=== PATIENT | female | born 1990 ===

== ENCOUNTER 2016-07-14 13:31 | Emergency (ER) | payer MEDICAID ==
[2016-03-19 22:17] VITALS: BMI 43.4
--- NOTE | 2016-07-14 18:24 | OBHP ---
Datetime: 07/14/2016 15:52 IP Adm Impression: Term, intrauterine ; No Active Labor IP Admit Plan: Observation/Evaluation Admit Comment, IP Provider: 26 y/o @ 39.1 weeks via u/s dating presented to [facility] with a CC of [place] abdominal pressure like pain. She states the pressure started 11 pm last night. Has not increase d in intensity has remained stable. She claims the pressure she is feeling makes her feel like she calderón s to pass stool but after passing stool the pressure sensation does not subside. - Denies fever/chills, headaches, changes in vision, epigastric pain, CP/SOB, N/V/D, urinary sympt oms, urinary/bowel incontinence, numbness/tingling. Denies VB/LOF/CTX and reports +FM. PNC: Cameron vizcaino PObhx: none PGynhx: none PMHx: HSV Psurghx: ankle surgery Social: denies alcohol/tobacco/drugs Meds: PNV daily, Iron supplements, Acyclovir Allergies: pineapple HIV: neg Rubella: Immune Blood type: A positve HBSAg: neg Exam: Vitals: reviewed, as above PE: as above A/P: 26 y/o @ 39.1 weeks via U/s here today for pressure like sensation at the lower abdomen. - Continuous monitoring Alfreda Coon PGY-1 OBH ADDENDUM: Pt Seen _ examined by me. Agree with above with following additions. Pt denie current or prior h/o HSV outbreak. She states she was diagnosed by lab evaluation. She states she is compliant w/ acyclovir medic. She denies current hsv outbreak, labial or vaginal or per irectal irritation. imp of compliance with acyclovir d/w pt. she understands a cd is indicated if she has lesion when in labor.. d/c home kick counts labor precautions Pelvic Type - PN: Adequate Extremities - PN: Normal Abdomen - PN: Normal Back - PN: Normal Lungs - PN: Normal Heart - PN: Normal Neurologic - PN: Normal HEENT - PN: Normal General - PN: Normal FHR - Baseline A Provider: 140 Membranes, Provider: Intact Contraction Comments Provider: NO Comments, ACOG Physical Exam: NO LABIAL, PERINEAL LESIONS EGA AdmitDate IP: 39.1 Vital Signs Provider: Reviewed; Within Normal Limits IP Chief Complaint: Maternal discomfort NICHD Variability Prov Fetus A: Moderate 6-25bpm NICHD Accel Fetus A IP Provider: 15X15 FHR Category Provider Fetus A: Category I (Annotations: Data stored by CPN on behalf of user) NICHD Decel Fetus A IP Provider: None Dilatation, Provider: 0 Effacement, Provider: 50 Station, Provider: -2 Genitourinary Exam: Normal
== END 2016-07-14 23:00 | disposition home or self-care (01) ==
LOC: H.EROB2 13:31
DX: O26.893 Other specified pregnancy related conditions, third trimester (principal); R10.30 Lower abdominal pain, unspecified; Z3A.39 39 weeks gestation of pregnancy

== ENCOUNTER 2016-07-18 03:30 | Emergency (ER) | payer MEDICAID ==
[2016-07-18 05:58] VITALS: BMI 45.3
== END 2016-07-18 06:00 | disposition home or self-care (01) ==
LOC: H.EROB2 03:30
DX: O44.03 Complete placenta previa NOS or without hemorrhage, third trimester (principal); O99.213 Obesity complicating pregnancy, third trimester; Z3A.39 39 weeks gestation of pregnancy; Z36 Encounter for antenatal screening of mother; O47.1 False labor at or after 37 completed weeks of gestation

== ENCOUNTER 2016-07-18 23:53 | Emergency (ER) | payer MEDICAID ==
--- NOTE | 2016-07-19 00:05 | OBHP ---
Datetime: 07/18/2016 05:35 Admit Comment, IP Provider: Patient aneudy irregularly Q2-3 min, no cervix modifications in 1 h our. Discharge home Case discussed with Dr Ahn. Jami Aguayo PGY1 OB Hospitalist note Agree with above note. MAHNDO FHR - Baseline A Provider: 140 Membranes, Provider: Intact Contraction Comments Provider: 12-3 min irregular NICHD Variability Prov Fetus A: Moderate 6-25bpm NICHD Accel Fetus A IP Provider: 15X15 NICHD Decel Fetus A IP Provider: None Dilatation, Provider: fingertip Effacement, Provider: 50 Station, Provider: -2 Datetime: 07/18/2016 04:34 IP Adm Impression: Term, intrauterine IP Admit Plan: Observation/Evaluation Pelvic Type - PN: Adequate Extremities - PN: Normal Back - PN: Normal Breast - PN: Not Done Lungs - PN: Normal Heart - PN: Normal Thyroid - PN: Normal Neurologic - PN: Normal HEENT - PN: Normal General - PN: Normal Comments, ACOG Physical Exam: Us Bedside: Vertex genitals: no herpes virus active lesions pelvic exam: 4: 30 am ROS: General: no weakness; no fatigue HEENT: no SZYMANSKI; no visual dist CV: no palpitations; no no CP GI: noN/V no diarhea No epigastric pain; non radiating : no F/U/D MS: No joint pain Pool Provider: Negative IP Hx Assessment: The History has been Reviewed and is Current EGA AdmitDate IP: 39.5 Vital Signs Provider: Reviewed; Within Normal Limits IP Chief Complaint: Uterine contractions FHR Category Provider Fetus A: Category I Genitourinary Exam: Normal DTRs - PN: Normal
[2016-07-19 02:29] VITALS: BMI 37.8
== END 2016-07-19 02:30 | disposition home or self-care (01) ==
LOC: H.EROB2 23:53
DX: O47.1 False labor at or after 37 completed weeks of gestation (principal); Z3A.39 39 weeks gestation of pregnancy

== ENCOUNTER 2016-07-19 20:15 | Inpatient (IN) | payer MEDICAID ==
[2016-07-20 03:30] VITALS: BMI 45.3
[2016-07-20] MEDS: Lactated Ringer's 1,000 ML IV SCH ×2 (03:30→04:31)
--- NOTE | 2016-07-20 03:31 | OBADHP ---
Datetime: 07/20/2016 03:25 Admit Comment, IP Provider: 26 yo , at 39.6 weeks GA By LMP 10/14/15 with [facility]: 07/20/16 presents t o [facility] c/o uterine ctx started 2 days ago. Patient was seen and evaluated yesterday, today midnight a nd discharged home, no in active labor.Patient comes again reporting Ctx has been stronger and more f requent since the morining 10 am and 40 min ago andreas 5 min,10/10 intensity. Patient denies LOF, VB, dysuria, fever, genital itching or genital burning sensation, headache, photophobia, N/V/D. Care in [facility]. Last visit last . Had US yesterday and patient was told everyth ing is ok. Last Us 05/17 17 EFW 4lb 10 oz, cephalic, posterior placenta. POBHx: none PGYNHx: Hx/o HSV PMHx: Obesity Allergies: NKDA, pineapple. SOB reaction. Meds: PNV, Iron, Acyclovir 1 tab qday PSurghx: left ankle fracture PShx: No ETOH,rect drugs, cig GBS: neg ABO-Rh: A+ Antibody: neg RPR: neg HIV: neg HBsAg: neg Rubella: immune GC/C: neg PPD: no TDap: no Assessment/Plan: 26 yo , at 39.5 weeks GA c/o uterine CTx. -Observation -Continous monitoring -check in 1 hour Jami Aguayo PGY1 Case Discussed with Dr Reyna -Patient will be recheck in 1 hour OB Hospitalist Addendum: Pt seen by me. Agree w/ above. 26 yo G1 at 39+6 wks c/o ctxns, denies L OF, VB, reports FM. VE 2/80-90/-2 per RN at 8:45 pm. VE 3-4/90/-1 at 11:15pm Pt became increasingly more uncomfortable, desires pain medication, epidual ordered. Pt admitted to L_D in labor. (ES) Pelvic Type - PN: Adequate Extremities - PN: Normal Abdomen - PN: Normal Back - PN: Normal Breast - PN: Normal Lungs - PN: Normal Heart - PN: Normal Thyroid - PN: Normal Neurologic - PN: Normal HEENT - PN: Normal General - PN: Normal FHR - Baseline A Provider: 140 Membranes, Provider: Intact Contraction Comments Provider: irregular Comments, ACOG Physical Exam: Us: Bedside: vertex 12:55 am 3-4 cm/90 % /-1 Vital Signs Provider: Reviewed; Within Normal Limits NICHD Variability Prov Fetus A: Moderate 6-25bpm NICHD Accel Fetus A IP Provider: 15X15 FHR Category Provider Fetus A: Category I NICHD Decel Fetus A IP Provider: None Dilatation, Provider: 3-4cm Effacement, Provider: 90 Station, Provider: -1 Genitourinary Exam: Normal DTRs - PN: Normal Datetime: 07/19/2016 21:16 Pool Provider: Negative IP Chief Complaint: Uterine contractions EGA AdmitDate IP: 39.6 IP Adm Impression: Term, intrauterine ; No Active Labor IP Admit Plan: Observation/Evaluation Datetime: 07/18/2016 04:34 IP Hx Assessment: The History has been Reviewed and is Current Datetime: 03/19/2016 22:24 IP Chief Complaint Other: back pain
[2016-07-20] MEDS ORDERED: Lactated Ringer's 1,000 ML IV SCH (04:45)
[2016-07-20 06:56] LABS: HEMATOCRIT 35.6 % (34.0-47.0); MEAN CORPUSCULAR HEMOGLOBIN 29.9 pg (27.0-31.0); MEAN CORPUSCULAR HGB CONC 32.8 g/dL (33.0-37.0); WHITE BLOOD COUNT 8.5 K/uL (4.8-10.8)
[2016-07-20 07:30] LABS: MEAN CELL VOLUME 91.2 fl (81.0-99.0)
[2016-07-20] MEDS ORDERED: Bupivacaine HCl 0.25% PF (10 ml) Inj ONE (08:19)
[2016-07-20] MEDS ORDERED: Fentanyl/Bupivacaine HCl 250 ML EPI ONE (08:19)
--- NOTE | 2016-07-20 09:45 | OBHP ---
Datetime: 07/20/2016 07:15 FHR - Baseline A Provider: 145 Amniotic Fluid Color, Provider: Clear Membranes, Provider: Ruptured Pool Provider: Positive Vital Signs Provider: Reviewed NICHD Decel Fetus A IP Provider: None Dilatation, Provider: 4 Effacement, Provider: 90 Station, Provider: -1 Datetime: 07/20/2016 03:25 Pelvic Type - PN: Adequate Extremities - PN: Normal Abdomen - PN: Normal Back - PN: Normal Breast - PN: Normal Lungs - PN: Normal Heart - PN: Normal Thyroid - PN: Normal Neurologic - PN: Normal HEENT - PN: Normal General - PN: Normal Contraction Comments Provider: irregular Comments, ACOG Physical Exam: Us: Bedside: vertex 12:55 am 3-4 cm/90 % /-1 NICHD Variability Prov Fetus A: Moderate 6-25bpm NICHD Accel Fetus A IP Provider: 15X15 FHR Category Provider Fetus A: Category I Genitourinary Exam: Normal DTRs - PN: Normal Datetime: 07/19/2016 21:16 IP Adm Impression: Term, intrauterine ; No Active Labor IP Admit Plan: Observation/Evaluation EGA AdmitDate IP: 39.6 IP Chief Complaint: Uterine contractions Datetime: 07/19/2016 00:15 Admit Comment, IP Provider: OBH ADDENDUM: pt seen _ examined by me. agree with above assessment and plan.26 yo , at 39.6 weeks GA By LM P 10/14/15 with BACILIO: 07/20/16 presents to [facility] c/o uterine ctx started 2 days ago. Last night , was seen in [facility] and discharged home. Patient c/w Ctx, worse today in the afternoon every 5 min, 10/10 intens ity. Patient denies LOF, VB, dysuria, fever, genital itching or genital burning sensation, headache, photophobia, N/V/D. Care in [facility]. Last visit last . Had US today and patient was told everything is ok. Last Us 05/17 16 EFW 4lb 10 oz, cephalic, post placenta. POBHx: none PGYNHx: Hx/o HSV PMHx: Obesity Allergies: NKDA, pineapple. SOB reaction. Meds: PNV, Iron, Acyclovir 1 tab qday PSurghx: left ankle fracture PShx: No ETOH,rect drugs, cig GBS: neg ABO-Rh: A+ Antibody: neg RPR: neg HIV: neg HBsAg: neg Rubella: immune GC/C: neg PPD: no TDap: no Assessment/Plan: 26 yo , at 39.5 weeks GA c/o uterine CTx. -Observation -Continous monitoring -check in 1 hour Jami Aguayo PGY1 Case Discussed with Dr Ortez -Patient will be recheck in 1 hour OBH ADDENDUM: pt seen _ examined by me. agree with above assessment and plan.
[2016-07-20] MEDS ORDERED: Oxytocin 30 units/LR 500ML 30 U/500 ML BAG IV SCH (11:20)
[2016-07-20] MEDS ORDERED: Oxycodone/Acetaminophen 5/325 mg Tab PO PRN ×4 (18:11→20:20)
--- NOTE | 2016-07-20 19:02 | OBDS ---
DELIVERY PERSONNEL Delivery Doctor: Sergio Pena MD Electric Frying Pan Repairer: Nayla Marie vloza Anesthesiologist: Radha Gómez MD MATERNAL INFORMATION Delivery Anesthesia: Epidural Medications in Delivery: Pitocin 30units in LR 500 at 999ml/hr Estimated Blood Loss (ml): 300 Placenta Cultured: No Maternal Complications: None Provider Comments: Delivery Note: AP dx: 40 wks; labor PP dx: same Procedure: , cord blood collected. placenta delivered spontaneously and intact Ob: ty thakur anesth: epidural dr gómez findings: viable female with compoiund presentation of rue; 3660g; 9_9 Destination: pt remained in br with LABOR SUMMARY EDC: 07/20/2016 00:00 No. Babies in Womb: 1 Attempted: No Labor Anesthesia: Epidural LABOR INFORMATION Reason for Induction: Not Applicable Onset of Labor: 07/20/2016 08:30 Complete Dilatation: 07/20/2016 15:45 Oxytocin: Augmentation Group B Beta Strep: Negative Antibiotics # of Doses: NA Antibiotics Time of Last Dose: NA Steroids Given: None Reason Steroids Not Administered: Not Applicable MEMBRANES Membranes Rupture Method: Spontaneous Rupture of Membranes: 07/20/2016 06:33 Length of Rupture (hrs): 10.37 Amniotic Fluid Color: Clear Amniotic Fluid Amount: Moderate Amniotic Fluid Odor: Normal STAGES OF LABOR Stage 1 hrs: 7 Stage 1 min: 15 Stage 2 hrs: 1 Stage 2 min: 10 Stage 3 hrs: 0 Stage 3 min: 9 Total Time in Labor hrs: 8 Total Time in Labor min: 34 VAGINAL DELIVERY Episiotomy: None Laceration Extension: N/A Laceration Type: None Initial Vag Sponge Count: 10 Final Vag Sponge Count: 10 Initial Vag Sharps Count: 0 Final Vag Sharps Count: 0 Sharps Count Correct: N/A Count Comment: laps 5 10 sponges BABY A INFORMATION Delivery Date/Time: 07/20/2016 16:55 Method of Delivery: Vaginal Born in Route : No : N/A Forceps: N/A Vacuum Extraction: N/A Shoulder Dystocia : No SHOULDER DYSTOCIA BABY A Delivery Date/Time: 07/20/2016 16:55 PRESENTATION/POSITION BABY A Presentation: Compound Cephalic Presentation: Vertex Breech Presentation: N/A PLACENTA INFORMATION BABY A Placenta Delivery Time : 07/20/2016 17:04 Placenta Method of Delivery: Spontaneous Placenta Status: Delivered SCORES BABY A Heart Rate 1 min: >100 bpm Resp Effort 1 min: Good Cry Reflex Irritability 1 min: Cough or Sneeze or Pulls Away Muscle Tone 1 min: Active Motion Color 1 min: Body [place], Extremities Blue Resuscitation Effort 1 min: Tactile Stimulation SCORE 1 MIN: 9 Heart Rate 5 min: >100 bpm Resp Effort 5 min: Good Cry Reflex Irritability 5 min: Cough or Sneeze or Pulls Away Muscle Tone 5 min: Active Motion Color 5 min: Body [place], Extremities Blue Resuscitation Effort 5 min: N/A SCORE 5 MIN: 9 INFANT INFORMATION BABY A Gestational Age at Delivery: 40.0 Gestational Status: Term Infant Outcome : Liveborn Infant Condition : Stable Sex: Female IDENTIFICATION/MEDS BABY A ID Band Number: [id number] ID Band Location: Left Leg Vitamin K Given : Not Given Erythromycin Given: Not Given WEIGHT/LENGTH BABY A Infant Birthweight (gms): 3660 Weight (lb): 8 Weight (oz): 1 CORD INFORMATION BABY A No. Cord Vessels: 3 Nuchal Cord : N/A Nuchal Cord Other: na True Knot: na Cord pH Baby Arterial: na Cord pH Baby Venous: na Cord Blood Taken: Yes Banking/Donate Info: no Suction: Mouth ASSESSMENT BABY A Complications: None Physical Findings at Delivery: Within Normal Limits Respirations: Appears Normal Sleep Lab Technologist/ALS Called : No Care By: Nayla Marie Transferred To: Remains with Mother
[2016-07-20] MEDS ORDERED: Oxytocin 30 units/LR 500ML 30 U/500 ML BAG IV ONE (19:07)
[2016-07-20 19:48] VITALS: BP 122/58; PULSE 82; RESP 18; TEMP 98.4; O2SAT 99
[2016-07-21 08:17] LABS: HEMATOCRIT 33.3 % (34.0-47.0); MEAN CELL VOLUME 92.3 fl (81.0-99.0); MEAN CORPUSCULAR HEMOGLOBIN 30.2 pg (27.0-31.0); MEAN CORPUSCULAR HGB CONC 32.7 g/dL (33.0-37.0); RED CELL DISTRIBUTION WIDTH 15.8 % (11.5-14.5); WHITE BLOOD COUNT 10.2 K/uL (4.8-10.8)
--- NOTE | 2016-07-21 09:49 | OBPPN ---
Datetime: 07/21/2016 06:16 PP Pain Prov: Within normal limits PP Nausea Prov: Denies PP Flatus Prov: Yes PP BM Prov: No PP Breasts Prov: Normal PP Heart Prov: Normal PP Lungs Prov: Normal PP Abdomen/Uterus Prov: Normal PP Lochia Prov: Normal PP Vulva/Perineum Prov: Normal PP CVA Tenderness Prov: Normal PP Extremities Prov: Normal PP C/S Incision Prov: Not Applicable PP Progress Prov: Normal PP Comments Phys Exam Prov: Uterus: fundus; firm above umbilicus minimal locha, non foul smelling PP Impression Prov: Normal progression PP Plan Prov: Continue present management PP Progress Note Prov: 26 y/o seen and examined at bedside. Patient had uneventful overnight. Patient reports mild pelvic pain controlled w/ pain meds. OOB/Ambulating w/o dizziness. Breast/rivka ttle feeding w/o difficulty. Tolerating PO diet well. Lochia is less than menses in volume. Voidin g freely w/ no blood noted. Reports flatus, but not bowel movement yet. Denies fevers, chills, n/v/ d, CP/SOB, lightheadedness and calf pain. Assessment: 26 y/o s/p on 07/20/2016 @ 16:55 tolerating pain w/ medication, toleratin g oral intake, adequate urine output, doing well on PPD1. Plan: Ibuprofen 600 mg 1 tab Q6h PO prn for mild pain. -Percocet 5/325 mg 1-2 tabs PO Q6h prn for mod/severe pain. Encourage breast feeding and ambulation. Jami Aguayo PGY1 agree with ove Vital Signs Provider PP: Reviewed; Within Normal Limits
[2016-07-21] MEDS ORDERED: Lansinoh for Breast Feeding Mothers TP PRN (16:04)
[2016-07-22] MEDS ORDERED: TDAP Vaccine 0.5 mL Syr IM ONE (09:00)
[2016-07-22] MEDS ORDERED: Bisacodyl 5mg EC Tab PO ONE (09:21)
--- NOTE | 2016-07-22 10:03 | OBDCSUM ---
Datetime: 07/22/2016 09:14 Discharged to, Provider: Home Follow up at, Provider: Your OB Disch Instr Activity: Normal activity; May be up to bathroom; May be up for meals; May Shower Disch Instr Diet: Regular Discharge Instructions, Provider: Routine instructions given Discharge Diagnosis, Provider: Term Delivered Discharge Time: 07/22/2016 12:00 Follow up in weeks, Provider: 6 weeks Disch Referrals: None Disch Activity Restrictions: Minimize stair-climbing; No sexual activity; Nothing in vagina - Interc ourse, tampons, douche Discharge Comment, Provider: PPD # 2 Patient feeling well this AM, denies pain/dizziness/weakness/nausea or vomiting. Reports flatus an d normal urine output, no bowel movement , tolerating PO diet, no difficulty ambulating. Patient is b ottle feeding, and using pump to aid in breast feeding. No concerns or complaints at this time. PE: VSS Lungs: CTABL Cardiac: S1 S2 rrr, no murmurs/rubs/gallops Abd: bowel sound present, soft, no tenderness to palpation, fundus firm below level of umbilicus Ext: no edema A: 26yr old s/p P: -Discharge to home -Follow up with your obgyn in 6 weeks -Take baby to [facility] in 2-3 days -Ibuprofen 600mg PO Q6 PRN pain -encouraged breast feeding -no sexual intercourse, nothing in the vagina Gina Zimmerman M.D. -PGY1 Contraception after Delivery: Foam/Condoms
--- NOTE | 2016-07-22 10:03 | OBPPN ---
Datetime: 07/22/2016 09:11 PP Pain Prov: Within normal limits PP Nausea Prov: Denies PP Flatus Prov: Yes PP BM Prov: No PP Heart Prov: Normal PP Lungs Prov: Normal PP Abdomen/Uterus Prov: Normal PP Lochia Prov: Normal PP CVA Tenderness Prov: Normal PP Extremities Prov: Normal PP C/S Incision Prov: Not Applicable PP Progress Prov: Normal PP Impression Prov: Normal progression PP Plan Prov: Continue present management PP Progress Note Prov: PPD # 2 Patient feeling well this AM, denies pain/dizziness/weakness/nausea or vomiting. Reports flatus an d normal urine output, no bowel movement , tolerating PO diet, no difficulty ambulating. Patient is b ottle feeding, and using pump to aid in breast feeding. No concerns or complaints at this time. PE: VSS Lungs: CTABL Cardiac: S1 S2 rrr, no murmurs/rubs/gallops Abd: bowel sound present, soft, no tenderness to palpation, fundus firm below level of umbilicus Ext: no edema A: 26yr old s/p P: -Continue present management -encouraged ambulation -pain management -encouraged breast feeding -Tdap ordered for this AM Gina Zimmerman M.D. -PGY1 Addendum by Dr. Younger: Patient evalauted independently and I agree with the above. Patient to be d ischarged today, discharge instructions reviewed IP PP Procedures: None
== END 2016-07-22 13:08 | disposition home or self-care (01) | DRG 373 ==
LOC: H.EROB2 20:15 → H.L&D 07-20 03:30 → H.OB/GYN 07-20 20:10
PROVIDERS: ADMIT Obstetrics & Gynecology; ATTEND Obstetrics & Gynecology
PROC: 10E0XZZ Delivery of Products of Conception, External Approach (ICD-10-PCS; principal; 2016-07-20)
PROC: 4A1HXCZ Monitoring of Products of Conception, Cardiac Rate, External Approach (ICD-10-PCS; 2016-07-20)
DX: O99.213 Obesity complicating pregnancy, third trimester (principal); E66.9 Obesity, unspecified; Z37.0 Single live birth; Z3A.39 39 weeks gestation of pregnancy

== ENCOUNTER 2016-10-03 09:50 | Emergency (ER) | payer MEDICAID ==
[2016-10-03 09:50] VITALS: BMI 45.3
[2016-10-03 10:21] VITALS: BP 120/72; PULSE 75; RESP 19; TEMP 97; O2SAT 100
--- NOTE | 2016-10-03 10:23 | ED PDOC ---
HPI: Female Pain Time Seen by Provider: 10/03/16 10:15 Chief Complaint (Nursing): Female Genitourinary Chief Complaint (Provider): pelvic pain History Per: Patient Additional Complaint(s): 26-year-old female presents to emergency department with generalized pelvic pain 1 week. Patient is 2 months and states that she had intercourse for the first time last week with her partner and has had pain since then. She denies abnormal bleeding or discharge, no fever or chills, no nausea, vomiting, diarrhea or constipation. Ibuprofen has helped the pain. Patient is currently breast-feeding. She is currently sexually active with one partner and denies any concern for STD. Past Medical History Reviewed: Historical Data, Nursing Documentation, Vital Signs - Medical History PMH: Depression - Surgical History Other surgeries: Left ankle surgery x 2 - Family History Family History: States: Diabetes (mom) - Living Arrangements Living Arrangements: Alone - Social History Current smoker - smoking cessation education provided: No Alcohol: None Drugs: Denies - Home Medications Home Medications: Ambulatory Orders Medication Instructions Recorded Comb No.42/Folic Acid 1 tab PO DAILY #60 tab 11/25/15 [Prena1 Chew Tablet] Ibuprofen [Motrin Tab] 600 mg PO Q6 PRN #20 tab 07/22/16 - Allergies Allergies/Adverse Reactions: Allergies Allergy/AdvReac Type Severity Reaction Status Date / Time pineapple Allergy ITCHING Verified 01/02/16 11:33 Review of Systems ROS Statement: Except As Marked, All Systems Reviewed And Found Negative Constitutional: Negative for: Fever, Chills Respiratory: Negative for: Cough Gastrointestinal: Negative for: Nausea, Vomiting Genitourinary Female: Positive for: Pelvic Pain. Negative for: Dysuria, Frequency, Incontinence, Hematuria, Vaginal Discharge, Vaginal Bleeding, Rash Neurological: Negative for: Headache, Dizziness Physical Exam - Reviewed Nursing Documentation Reviewed: Yes Vital Signs Reviewed: Yes - Physical Exam Appears: Positive for: Well Skin: Negative for: Rash Eye Exam: Positive for: Normal appearance, EOMI, PERRL Cardiovascular/Chest: Positive for: Regular Rate, Rhythm Respiratory: Positive for: Normal Breath Sounds. Negative for: Respiratory Distress Gastrointestinal/Abdominal: Positive for: Soft. Negative for: Tenderness, Distended, Guarding, Rebound Pelvic Exam: Positive for: External Exam Normal, Speculum Exam Normal, Tender Uterus. Negative for: Active Bleeding, Cervicitis, Discharge, Lesions, Tender W /Cervical Motion, Tender Adnexa, Ulcers Back: Negative for: L CVA Tenderness, R CVA Tenderness Extremity: Positive for: Normal ROM Neurologic/Psych: Positive for: Alert, Oriented - Laboratory Results Urine POC: Negative Urine dip results: Negative for: Leukocyte Esterase, Blood, Nitrate, Ketones, Glucose, Bilirubin, Protein - ECG O2 Sat by Pulse Oximetry: 100 Pulse Ox Interpretation: Normal - Other Rad Transvaginal US X-Ray: Read By Radiologist X-Ray Interpretation: see below Medical Decision Making Medical Decision Makin26 year old with pelvic pain Plan: Urine test Urine dip Pelvic exam Transvaginal US Genital culture CHL/GC culture Patient declined pain meds. US: FINDINGS: UTERUS: Measures approximately 8.8 x 5.6 x 4.4 cm. Uterus is anteverted exhibiting normal size and echotexture. ENDOMETRIUM: Measures 1.26 cm in diameter. Unremarkable. CERVIX: No cervical abnormality identified. RIGHT OVARY: Measures approximately 4.3 x 3.9 x 2.9 cm. There is a complex appearing cyst measuring approximately 2.9 x 2.8 x 2.3 cm. Dg Right ovary exhibits normal arterial flow. LEFT OVARY: Measures approximately 2.8 x 2.6 x 2.1 cm and contains multiple follicular cysts. Left ovary exhibits normal arterial flow. FREE FLUID: There is small amount of free fluid seen in the cul de sac. OTHER FINDINGS: None. IMPRESSION: Co mplex appearing right adnexal cyst as above. Follow-up ultrasound during the next menstrual period shortly following cessation of menses recommended to assess for resolution. Small amount of free fluid is present within the cul de sac. Patient is aware of all diagnostic testing results, questions answered. She was advised to continue with ibuprofen for pain and was instructed to follow-up with her portrait studio photographer. Disposition - Clinical Impression Clinical Impression: Pelvic pain, Ovarian cyst - Patient ED Disposition Is Patient to be Admitted: No Counseled Patient/Family Regarding: Studies Performed, Diagnosis, Need For Followup - Disposition [facility] Disposition: Routine/Home Disposition Time: 11:44 Condition: STABLE Additional Instructions: Continue with ibuprofen for pain as needed. Follow up with her portrait studio photographer in 2 -3 days. Instructions: Ovarian Cyst (ED), Pelvic Pain in Women (ED) Forms: [employer] ([place]) Results - Lab Results Lab Results: 07/26/17 10:40 Urine Color Yellow Urine Clarity Slighty-cloudy Urine pH 6.0 Ur Specific Allison 1.020 Urine Protein Negative Urine Glucose (UA) Neg Urine Ketones Negative Urine Blood Negative Urine Nitrate Negative Urine Bilirubin Negative Urine Urobilinogen 0.2-1.0 Ur Leukocyte Esterase Neg Urine RBC (Auto) 3 Urine Microscopic WBC 1 Ur Squamous Epith Cells 4 Urine Bacteria Rare
[2016-10-03 10:55] LABS: SQUAMOUS EPITHIAL 4 /hpf (0-5); URINE BACTERIA RARE (<OCC); URINE BILIRUBIN NEGATIVE (NEGATIVE); URINE BLOOD NEGATIVE (NEGATIVE); URINE CLARITY SLIGHTY-CLOUDY (Clear); URINE COLOR YELLOW (YELLOW); URINE GLUCOSE (UA) NEG (Normal); URINE LEUKOCYTE ESTERASE NEG Leu/uL (Negative); URINE NITRATE NEGATIVE (NEGATIVE); URINE PROTEIN NEGATIVE (NEGATIVE); URINE UROBILINOGEN 0.2-1.0 mg/dL (0.2-1.0)
--- NOTE | 2016-10-03 11:38 | US ---
HISTORY: pelvic pain COMPARISON: None available. TECHNIQUE: Transvaginal sonographic evaluation of the pelvis performed. FINDINGS: UTERUS: Measures approximately 8.8 x 5.6 x 4.4 cm. Uterus is anteverted exhibiting normal size and echotexture. ENDOMETRIUM: Measures 1.26 cm in diameter. Unremarkable. CERVIX: No cervical abnormality identified. RIGHT OVARY: Measures approximately 4.3 x 3.9 x 2.9 cm. There is a complex appearing cyst measuring approximately 2.9 x 2.8 x 2.3 cm. Dg Right ovary exhibits normal arterial flow. LEFT OVARY: Measures approximately 2.8 x 2.6 x 2.1 cm and contains multiple follicular cysts. Left ovary exhibits normal arterial flow. FREE FLUID: There is small amount of free fluid seen in the cul de sac. . OTHER FINDINGS: None. IMPRESSION: Complex appearing right adnexal cyst as above. Follow-up ultrasound during the next menstrual period shortly following cessation of menses recommended to assess for resolution. . Small amount of free fluid is present within the cul de sac. .
== END 2016-10-03 11:56 | disposition home or self-care (01) ==
LOC: H.ER 09:50
DX: N83.209 Unspecified ovarian cyst, unspecified side (principal); R10.2 Pelvic and perineal pain

== ENCOUNTER 2017-05-30 07:29 | Emergency (ER) | payer MEDICAID ==
[2017-05-30 07:31] VITALS: BMI 47.2
[2017-05-30 07:33] VITALS: O2SAT 100
[2017-05-30] MEDS ORDERED: Sodium Chloride 0.9% 1,000 ML IV STA (07:54)
--- NOTE | 2017-05-30 08:00 | ED PDOC ---
HPI:Nausea, Vomiting, Diarrhea Time Seen by Provider: 05/30/17 07:31 Chief Complaint (Nursing): Flu-like Symptoms Chief Complaint (Provider): Nausea, vomit and diarrhea History Per: Patient History/Exam Limitations: no limitations Onset/Duration Of Symptoms: Days (x2) Current Symptoms Are (Timing): Still Present Associated Symptoms: Nausea, Diarrhea, Other (cough and sneezing.). denies: Fever, Chills Additional Complaint(s): Dana Stewart is a 27 year old female, with no significant past medical history, who presents to the emergency department complaining of nausea, vomit and diarrhea preceded by cough and sneezing onset for x2 days. Patient had a outpatient flu test done which was negative. She denies any fever, chills or other medical complaints. PMD: None provided. Past Medical History Reviewed: Historical Data, Nursing Documentation, Vital Signs Vital Signs: Last Vital Signs Temp 97.9 F 05/30/17 07:31 Pulse 95 H 05/30/17 07:31 Resp 20 05/30/17 07:31 BP 115/74 05/30/17 07:31 Pulse Ox 100 05/30/17 07:31 - Medical History PMH: Depression, Pneumonia Denies: Chronic Kidney Disease, Seizures, Sexually Transmitted Disease - Surgical History Surgical History: No Surg Hx - Family History Family History: States: Diabetes (mom) - Social History Current smoker - smoking cessation education provided: No Alcohol: Occasional Drugs: Denies - Immunization History Hx Tetanus Toxoid Vaccination: No Hx Influenza Vaccination: No Hx Pneumococcal Vaccination: No - Home Medications Home Medications: Ambulatory Orders Medication Instructions Recorded Comb No.42/Folic Acid 1 tab PO DAILY #60 tab 11/25/15 [Prena1 Chew Tablet] Ibuprofen [Motrin Tab] 600 mg PO Q6 PRN #20 tab 07/22/16 Loperamide [Loperamide HCl] 2 mg PO Q8 #10 cap 05/30/17 Ondansetron [Zofran] 4 mg PO Q8H #10 tab 05/30/17 - Allergies Allergies/Adverse Reactions: Allergies Allergy/AdvReac Type Severity Reaction Status Date / Time pineapple Allergy ITCHING Verified 01/02/16 11:33 Review of Systems ROS Statement: Except As Marked, All Systems Reviewed And Found Negative Constitutional: Negative for: Fever, Chills Respiratory: Positive for: Cough, Other (sneezing) Gastrointestinal: Positive for: Nausea, Vomiting, Diarrhea Physical Exam - Reviewed Nursing Documentation Reviewed: Yes Vital Signs Reviewed: Yes - Physical Exam Appears: Positive for: Well, Non-toxic, No Acute Distress Head Exam: Positive for: ATRAUMATIC, NORMAL INSPECTION, NORMOCEPHALIC Skin: Positive for: Normal Color, Warm, Dry Eye Exam: Positive for: Normal appearance, EOMI, PERRL ENT: Positive for: Other (Mucous membranes dry) Neck: Positive for: Painless ROM Cardiovascular/Chest: Positive for: Regular Rate, Rhythm. Negative for: Murmur Respiratory: Positive for: Normal Breath Sounds. Negative for: Respiratory Distress Gastrointestinal/Abdominal: Positive for: Normal Exam, Soft. Negative for: Tenderness Extremity: Positive for: Normal ROM (full on all extremities). Negative for: Tenderness, Deformity, Swelling Neurologic/Psych: Positive for: Alert, Oriented - Laboratory Results Result Diagrams: 05/30/17 08:05 05/30/17 08:05 - ECG O2 Sat by Pulse Oximetry: 100 (RA) Pulse Ox Interpretation: Normal Medical Decision Making Medical Decision Making: Initial Plan: --CMP --Urine dipstick --Urine --CBC w/ differential --Sodium Chloride 1,000 ml IV 200 mls/hr --Zofran Inj 4 mg IVP --Reevaluation Scribe Attestation: Documented by Samir White, acting as a scribe for Andrea Horvath MD Provider Scribe Attestation: All medical record entries made by the Scribe were at my direction and personally dictated by me. I have reviewed the chart and agree that the record accurately reflects my personal performance of the history, physical exam, medical decision making, and the department course for this patient. I have also personally directed, reviewed, and agree with the discharge instructions and disposition. Disposition - Clinical Impression Clinical Impression: Gastroenteritis - Patient ED Disposition Is Patient to be Admitted: No Counseled Patient/Family Regarding: Studies Performed, Diagnosis, Need For Followup, Rx Given - Disposition Referrals: [facility] [Outside] Disposition: Routine/Home Disposition Time: 08:45 Condition: FAIR Prescriptions: Loperamide [Loperamide HCl] 2 mg PO Q8 #10 cap Ondansetron [Zofran] 4 mg PO Q8H #10 tab Instructions: Gastroenteritis (ED) Forms: [employer] (Turkish)
[2017-05-30 08:25] LABS: BASO % 0.1 % (0.0-2.0); EOS % 0.5 % (0.0-4.0); HEMOGLOBIN 13.6 g/dL (12.0-16.0); LYMPH # 1.1 K/uL (1.0-4.3); LYMPH % 13.2 % (20.0-40.0); MEAN CELL VOLUME 86.9 fl (81.0-99.0); MEAN CORPUSCULAR HGB CONC 34.5 g/dL (33.0-37.0); MEAN PLATELET VOLUME 7.6 fl (7.2-11.7); MONO # 0.4 K/uL (0.0-0.8); MONO % 5.4 % (0.0-10.0); NEUT # 6.5 K/uL (1.8-7.0); NEUT % 80.8 % (50.0-75.0); RBC 4.53 Mil/uL (3.80-5.20); RED CELL DISTRIBUTION WIDTH 13.4 % (11.5-14.5)
[2017-05-30 08:42] LABS: ALB/GLOB RATIO 1.2 (1.0-2.1); ALBUMIN 4.3 g/dL (3.5-5.0); GFR AFRICAN-AMERICAN > 60; GFR NON-AFRICAN AMERICAN > 60
[2017-05-30 08:45] LABS: ALT/SGPT 29 U/L (9-52); AST/SGOT 29 U/L (14-36); BLOOD UREA NITROGEN 12 mg/dl (7-17)
[2017-05-30 09:09] VITALS: BP 122/72; PULSE 75; RESP 18; TEMP 98
== END 2017-05-30 08:53 | disposition home or self-care (01) ==
LOC: H.ER 07:29
DX: K52.9 Noninfective gastroenteritis and colitis, unspecified (principal); F32.9 Major depressive disorder, single episode, unspecified
CPT/HCPCS: 80053; 81025; 85025; 96360; 99284; J7040

== ENCOUNTER 2017-10-10 09:05 | Emergency (ER) | payer MEDICAID ==
[2017-10-10 09:05] VITALS: BMI 47.2
--- NOTE | 2017-10-10 10:21 | ED PDOC ---
HPI: Headache Time Seen by Provider: 10/10/17 09:10 Chief Complaint (Nursing): Headache Chief Complaint (Provider): Headache History Per: Patient History/Exam Limitations: no limitations Onset/Duration Of Symptoms: Intermittent Episodes, Other (2 months) Associated Symptoms: Nausea. denies: Blurred Vision, Vomiting Additional Complaint(s): 27 years old female with history of migraines and PCOS presents to the ED for evaluation of intermittent episodes of right sided headache associated with nausea onset 2 weeks. Patient reports taking Tylenol 4 days ago but developed shaking and sweating due to it. She states pain lasts half an hour, goes and then comes back. Patient states pain worsens with hot weather. She denies any vomiting or vision changes. PMD: non provided Past Medical History Reviewed: Historical Data, Nursing Documentation, Vital Signs Vital Signs: Last Vital Signs Temp 97.6 F 10/10/17 09:09 Pulse 75 10/10/17 09:09 Resp 18 10/10/17 09:09 BP 102/61 10/10/17 09:09 Pulse Ox 99 10/10/17 09:09 - Medical History PMH: Depression, Migraine, Pneumonia Denies: Chronic Kidney Disease, Seizures, Sexually Transmitted Disease - Surgical History Other surgeries: 2 ankle surgeries - Family History Family History: States: Diabetes (mom) - Social History Current smoker - smoking cessation education provided: No Alcohol: None Drugs: Denies - Immunization History Hx Tetanus Toxoid Vaccination: No Hx Influenza Vaccination: No Hx Pneumococcal Vaccination: No - Home Medications Home Medications: Ambulatory Orders Medication Instructions Recorded Comb No.42/Folic Acid 1 tab PO DAILY #60 tab 11/25/15 [Prena1 Chew Tablet] Ibuprofen [Motrin Tab] 600 mg PO Q6 PRN #20 tab 07/22/16 Loperamide [Loperamide HCl] 2 mg PO Q8 #10 cap 05/30/17 Ondansetron [Zofran] 4 mg PO Q8H #10 tab 05/30/17 Ibuprofen [Motrin] 600 mg PO Q6H PRN #20 tab 10/10/17 - Allergies Allergies/Adverse Reactions: Allergies Allergy/AdvReac Type Severity Reaction Status Date / Time pineapple Allergy ITCHING Verified 10/10/17 09:16 Review of Systems ROS Statement: Except As Marked, All Systems Reviewed And Found Negative Eyes: Negative for: Vision Change Gastrointestinal: Positive for: Nausea. Negative for: Vomiting Neurological: Positive for: Headache (Right sided) Physical Exam - Reviewed Nursing Documentation Reviewed: Yes Vital Signs Reviewed: Yes - Physical Exam Appears: Positive for: Non-toxic, No Acute Distress Skin: Positive for: Normal Color, Warm, Dry Eye Exam: Positive for: Normal appearance ENT: Positive for: Normal ENT Inspection Neck: Positive for: Normal Cardiovascular/Chest: Positive for: Regular Rate, Rhythm. Negative for: Murmur Respiratory: Positive for: Normal Breath Sounds. Negative for: Respiratory Distress Gastrointestinal/Abdominal: Positive for: Normal Exam, Soft. Negative for: Tenderness Back: Positive for: Normal Inspection Extremity: Positive for: Normal ROM. Negative for: Tenderness Neurologic/Psych: Positive for: Alert, bonbon cream warmer II-XII, Oriented (x3), Gait (stable) . Negative for: Motor/Sensory Deficits, Aphasia, Facial Droop - Laboratory Results Result Diagrams: 10/10/17 10:42 10/10/17 10:42 - ECG O2 Sat by Pulse Oximetry: 99 (RA) Pulse Ox Interpretation: Normal Medical Decision Making Medical Decision Making: Time: 1005 Initial Plan: migraine, history of migraines rule out electrolyte abnormality --CMP --CBC --NaCl 1,000 ml IV --Reglan 10 mg IVP 1230 Labs show no significant abnormality. Patient reports improvement of symptoms but not to complete resolution, so ordered Toradol. She ate a food tray while in the ER. pt awake and alert, airway intact, pain improved and requesting to go home. instructed her to follow up with her doctor and return to the ED with any worsening or concerning symptoms. ----- Scribe Attestation: Documented by Della De Leon, acting as a scribe for Ernesto Venegas MD. Provider Scribe Attestation: All medical record entries made by the Scribe were at my direction and personally dictated by me. I have reviewed the chart and agree that the record accurately reflects my personal performance of the history, physical exam, medical decision making, and the department course for this patient. I have also personally directed, reviewed, and agree with the discharge instructions and disposition. Disposition - Clinical Impression Clinical Impression: Migraine - Patient ED Disposition Is Patient to be Admitted: No Counseled Patient/Family Regarding: Studies Performed, Diagnosis, Need For Followup - Disposition Referrals: [facility] [Outside] [facility] [Outside] Disposition: Routine/Home Disposition Time: 12:25 Condition: IMPROVED Additional Instructions: follow up with the clinic in 1-2 days return to the ED with any worsening or concerning symptoms Prescriptions: Ibuprofen [Motrin] 600 mg PO Q6H PRN #20 tab PRN Reason: Pain, Moderate (4-7) Instructions: Migraine Headache (DC) Forms: [employer] (Irish)
[2017-10-10] MEDS: Sodium Chloride 0.9% 1,000 ML IV STA (10:26)
[2017-10-10 10:45] LABS: BASO % 0.7 % (0.0-2.0); EOS # 0.1 K/uL (0.0-0.7); EOS % 1.3 % (0.0-4.0); HEMOGLOBIN 12.9 g/dL (12.0-16.0); LYMPH # 2.2 K/uL (1.0-4.3); LYMPH % 46.2 % (20.0-40.0); MEAN CELL VOLUME 86.4 fl (81.0-99.0); MEAN CORPUSCULAR HEMOGLOBIN 30.1 pg (27.0-31.0); MEAN CORPUSCULAR HGB CONC 34.8 g/dL (33.0-37.0); MEAN PLATELET VOLUME 7.2 fl (7.2-11.7); MONO # 0.4 K/uL (0.0-0.8); MONO % 8.2 % (0.0-10.0); NEUT % 43.6 % (50.0-75.0); NRBC % 0.1 % (0.0-0.0); RBC 4.3 Mil/uL (3.80-5.20); RED CELL DISTRIBUTION WIDTH 13.4 % (11.5-14.5); WHITE BLOOD COUNT 4.7 K/uL (4.8-10.8)
[2017-10-10 10:56] LABS: ALB/GLOB RATIO 1.3 (1.0-2.1); ALBUMIN 4.2 g/dL (3.5-5.0); ALT/SGPT 23 U/L (9-52); AST/SGOT 17 U/L (14-36); BLOOD UREA NITROGEN 8 mg/dl (7-17); CALCIUM 8.8 mg/dL (8.4-10.2); GFR AFRICAN-AMERICAN > 60; GFR NON-AFRICAN AMERICAN > 60
[2017-10-10 12:54] VITALS: BP 128/78; PULSE 78; RESP 19; TEMP 97
[2017-10-10 15:24] VITALS: O2SAT 99
== END 2017-10-10 12:56 | disposition home or self-care (01) ==
LOC: H.ER 09:05
DX: G43.909 Migraine, unspecified, not intractable, without status migrainosus (principal)
CPT/HCPCS: 80053; 81025; 85025; 96361; 96374; 96375; 99285; J1885; J2765; J7030

== ENCOUNTER 2018-01-11 16:09 | Emergency (ER) | payer MEDICAID ==
[2018-01-11 16:09] VITALS: BMI 47.2
--- NOTE | 2018-01-11 17:17 | ED PDOC ---
Lower Extremity Pain/Injury Time Seen by Provider: 01/11/18 16:33 Chief Complaint (Nursing): Lower Extremity Problem/Injury Chief Complaint (Provider): Left ankle pain, injury History Per: Patient History/Exam Limitations: no limitations Onset/Duration Of Symptoms: Hrs Current Symptoms Are (Timing): Still Present Additional Complaint(s): 27 yo female with previous tendon repair on the left ankle, presents with left ankle pain. PT states she tripped going down the steps and twisted her ankle. Pt reports lateral ankle pain. Pt also reports chronic tingling/numbness on the lateral ankle since previous tendon repair, over scar. Pt states she was given referral to f/u with neurologist but did not make appointment due to her work schedule. 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 Camp Past Medical History Vital Signs: Last Vital Signs Temp 98.2 F 01/11/18 16:39 Pulse 86 01/11/18 16:39 Resp 16 01/11/18 16:39 BP 112/68 01/11/18 16:39 Pulse Ox 100 01/11/18 16:39 - Medical History PMH: Depression, Migraine, Pneumonia Denies: Chronic Kidney Disease, Seizures, Sexually Transmitted Disease - Family History Family History: States: Diabetes (mom) - Immunization History Hx Tetanus Toxoid Vaccination: No Hx Influenza Vaccination: No Hx Pneumococcal Vaccination: No - Home Medications Home Medications: Ambulatory Orders Medication Instructions Recorded Comb No.42/Folic Acid 1 tab PO DAILY #60 tab 11/25/15 [Prena1 Chew Tablet] Ibuprofen [Motrin Tab] 600 mg PO Q6 PRN #20 tab 07/22/16 Loperamide [Loperamide HCl] 2 mg PO Q8 #10 cap 05/30/17 Ondansetron [Zofran] 4 mg PO Q8H #10 tab 05/30/17 Ibuprofen [Motrin] 600 mg PO Q6H PRN #20 tab 10/10/17 Ibuprofen [Motrin Tab] 800 mg PO Q6H PRN #20 tab 01/11/18 - Allergies Allergies/Adverse Reactions: Allergies Allergy/AdvReac Type Severity Reaction Status Date / Time pineapple Allergy ITCHING Verified 10/10/17 09:16 Review of Systems ROS Statement: Except As Marked, All Systems Reviewed And Found Negative Constitutional: Negative for: Fever, Chills Musculoskeletal: Positive for: Other (LEft ankle pain) Physical Exam - Reviewed Nursing Documentation Reviewed: Yes Vital Signs Reviewed: Yes - Physical Exam Appears: Positive for: Well, Non-toxic, No Acute Distress Head Exam: Positive for: ATRAUMATIC, NORMAL INSPECTION, NORMOCEPHALIC Skin: Positive for: Warm. Negative for: Normal Color (healed scar on the lateral left ankle ) Eye Exam: Positive for: Normal appearance ENT: Positive for: Normal ENT Inspection Neck: Positive for: Normal Cardiovascular/Chest: Negative for: Bradycardia, Tachycardia Respiratory: Negative for: Accessory Muscle Use, Respiratory Distress Pulses-Dorsalis Pedis (L): 2+ Pulses-Post. Tibialis (L): 2+ Back: Positive for: Normal Inspection Extremity: Positive for: Normal ROM Neurologic/Psych: Positive for: Alert, Oriented - ECG O2 Sat by Pulse Oximetry: 100 (RA) Pulse Ox Interpretation: Normal Medical Decision Making Medical Decision Making: Time: 1703 Initial Plan: --X-ray ankle ------- Scribe Attestation: Documented by Chris Ralph, acting as a scribe for Grace Batista PA-C Provider Scribe Attestation: All medical record entries made by the Scribe were at my direction and personally dictated by me. I have reviewed the chart and agree that the record accurately reflects my personal performance of the history, physical exam, medical decision making, and the department course for this patient. I have also personally directed, reviewed, and agree with the discharge instructions and di sposition. Disposition - Clinical Impression Clinical Impression: Ankle injury - Patient ED Disposition Is Patient to be Admitted: No - Disposition Disposition: Routine/Home Disposition Time: 19:09 Condition: GOOD Prescriptions: Ibuprofen [Motrin Tab] 800 mg PO Q6H PRN #20 tab PRN Reason: Pain Instructions: Ankle Sprain Forms: [employer] ([place] Citizen)
[2018-01-11 19:16] VITALS: BP 121/82; PULSE 73; RESP 17; TEMP 98
[2018-01-11 19:18] VITALS: O2SAT 100
--- NOTE | 2018-01-11 22:00 | RAD ---
Date of service: 01/11/2018 PROCEDURE: Left Ankle Radiographs. HISTORY: pain, twisted ankle, previous tendon repair COMPARISON: None available. FINDINGS: BONES: Normal. No fracture. JOINTS: Normal. No osteoarthritis. Ankle mortise maintained. Talar dome intact SOFT TISSUES: Normal. OTHER FINDINGS: None. IMPRESSION: Normal left ankle radiographs.
--- NOTE | 2018-01-12 14:38 | CP.PCM.CON ---
History of Present Illness - History of Present Illness History of Present Illness: Podiatry consult note for Dr. Camp, 27 y/o female with no significant PMHx and with previous tendon repair on the left ankle, presents with left ankle pain. Pt states she tripped going up the steps and twisted her ankle. Pt reports lateral ankle pain. Pt also reports chronic tingling/numbness on the lateral ankle since previous tendon repair, over scar. Pt states she was given referral to f/u with neurologist but did not make appointment due to her work schedule. Patient denies any other complaints at this time. Patient denies any fever, nausea, vomiting, shortness of breath, or chest pain. 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 Camp PMHx: Migraine, Pneumonia PSHx: Lateral Ankle Stabilizatio x 2 (2012, 2014) Mediations: denied by patient Allergies: Pineapple Review of Systems - Review of Systems All systems: reviewed and no additional remarkable complaints except Review of Systems: As per HPI Past Patient History - Infectious Disease Hx of Infectious Diseases: None - Tetanus Immunizations Tetanus Immunization: Unknown - Past Medical History & Family History Past Medical History?: No - Past Social History Smoking Status: Former Smoker - PULMONARY Hx Pneumonia: Yes - NEUROLOGICAL Hx Migraine: Yes Hx Seizures: No - HEENT Hx HEENT Problems: No - RENAL Hx Chronic Kidney Disease: No - ENDOCRINE/METABOLIC Hx Endocrine Disorders: No - INTEGUMENTARY Hx Dermatological Problems: No - MUSCULOSKELETAL/RHEUMATOLOGICAL Hx Musculoskeletal Disorders: No - GASTROINTESTINAL Hx Gastrointestinal Disorders: No - GENITOURINARY/GYNECOLOGICAL Hx Sexually Transmitted Disorders: No - PSYCHIATRIC Hx Depression: Yes - SURGICAL HISTORY Hx Surgeries: Yes Hx Musculoskeletal Surgery: Yes (LEFT ANKLE JAN 2014) - ANESTHESIA Hx Anesthesia: Yes Hx Anesthesia Reactions: No Meds Home Medications: Home Medication List Medication Instructions Recorded Confirmed Type Ibuprofen [Motrin Tab] 800 mg PO Q6H PRN #20 tab 01/11/18 Rx Allergies/Adverse Reactions: Allergies Allergy/AdvReac Type Severity Reaction Status Date / Time pineapple Allergy ITCHING Verified 10/10/17 09:16 Physical Exam - Constitutional Appears: Well, Non-toxic, No Acute Distress - Head Exam Head Exam: ATRAUMATIC, NORMOCEPHALIC - Extremities Exam Additional comments: VASC: DP and PT 2/4 bilaterally, CFT less than 3 seconds X 10, TG within normal limits, minimal non-pitting edema noted to the left lateral ankle and lateral aspect of the left foot NEURO: grossly intact DERM: minimal ecchymosis to the lateral aspect of the foot distal to the lateral ankle along the peroneal tendon, no open lesions, no clinical signs of infection ORTHO: pain on palpation along the course of the peroneal tendons, pain with inversion and plantarflexion, pain with ankle range of motion, minimal diffuse pain at the medial malleolus, MSK 5/5 - Neurological Exam Neurological exam: Alert, Oriented x3 Results - Vital Signs Recent Vital Signs: Last Vital Signs Temp 98.0 F 01/11/18 19:15 Pulse 73 01/11/18 19:15 Resp 17 01/11/18 19:15 BP 121/82 01/11/18 19:15 Pulse Ox 100 01/11/18 20:11 Assessment & Plan - Assessment and Plan (Free Text) Assessment: 27 y/o female with no significant PMHx and with previous tendon repair on the left ankle, presents with left ankle pain. Pt states she tripped going up the steps and twisted her ankle. Plan: Patient seen and evaluated in ED for Dr. Camp Plan discussed with attending Chart, labs and x-rays reviewed Left Foot X-ray: no acute fracture or dislocation noted Patient placed in a posterior splint, and instructed on crutch training Patient to remain NWB to the LLE at this time Patient to follow up in Dr. Camp [facility] Patient demonstrated verbal understanding Patient advised to return to ED if any signs of infection present Thank you for the podiatry consult - Date & Time Date: 01/12/18 Time: 14:46
== END 2018-01-11 19:16 | disposition home or self-care (01) ==
LOC: H.ER 16:09
DX: S99.912A Unspecified injury of left ankle, initial encounter (principal); W10.9XXA Fall (on) (from) unspecified stairs and steps, initial encounter; Z87.891 Personal history of nicotine dependence; Z86.59 Personal history of other mental and behavioral disorders

== ENCOUNTER 2018-03-03 20:57 | Emergency (ER) | payer MEDICAID ==
[2018-03-03 20:57] VITALS: BMI 47.2
[2018-03-03 21:09] VITALS: BP 117/60; PULSE 95; RESP 20; TEMP 98.4; O2SAT 100
[2018-03-03] MEDS ORDERED: Sodium Chloride 0.9% 500 ML IV STA (21:46)
--- NOTE | 2018-03-03 21:51 | ED PDOC ---
HPI: Abdomen Time Seen by Provider: 03/03/18 21:18 Chief Complaint (Nursing): Abdominal Pain Chief Complaint (Provider): N/V, diarrhea History Per: Patient Associated Symptoms: Chills, Nausea, Vomiting, Diarrhea, Chest Pain. denies: Fever Additional Complaint(s): 28 y/o obese Female with no significant PMH who presents with N/V and diarrhea since today. Pt states that she had a meat empanada earlier today and about 1 - 2 hrs later developed N/V and diarrhea. Others had similar empanadas and are not sick. Since 3pm, she has had persistent vomiting, last of which was just prior to arrival. She has epigastric pain as well as mild dizziness. She developed chest pain with deep inspiration this afternoon but denies radiation of pain to arm or jaw or SOB. Past Medical History Vital Signs: Last Vital Signs Temp 98.4 F 03/03/18 21:07 Pulse 95 H 03/03/18 21:07 Resp 20 03/03/18 21:07 BP 117/60 03/03/18 21:07 Pulse Ox 100 03/03/18 21:07 - Medical History PMH: Depression, Migraine, Pneumonia Denies: Chronic Kidney Disease, Seizures, Sexually Transmitted Disease - Family History Family History: States: Diabetes (mom) - Immunization History Hx Tetanus Toxoid Vaccination: No Hx Influenza Vaccination: No Hx Pneumococcal Vaccination: No - Home Medications Home Medications: Ambulatory Orders Medication Instructions Recorded Comb No.42/Folic Acid 1 tab PO DAILY #60 tab 11/25/15 [Prena1 Chew Tablet] Ibuprofen [Motrin Tab] 600 mg PO Q6 PRN #20 tab 07/22/16 Loperamide [Loperamide HCl] 2 mg PO Q8 #10 cap 05/30/17 Ondansetron [Zofran] 4 mg PO Q8H #10 tab 05/30/17 Ibuprofen [Motrin] 600 mg PO Q6H PRN #20 tab 10/10/17 Ibuprofen [Motrin Tab] 800 mg PO Q6H PRN #20 tab 01/11/18 Ondansetron ODT [Zofran ODT] 4 mg PO Q8 PRN #6 odt 03/04/18 - Allergies Allergies/Adverse Reactions: Allergies Allergy/AdvReac Type Severity Reaction Status Date / Time No Known Allergies Allergy Verified 03/03/18 21:09 Physical Exam - Reviewed Nursing Documentation Reviewed: Yes Vital Signs Reviewed: Yes - Physical Exam Appears: Positive for: Uncomfortable Head Exam: Positive for: ATRAUMATIC Skin: Positive for: Normal Color Cardiovascular/Chest: Positive for: Regular Rate, Rhythm Respiratory: Positive for: Normal Breath Sounds Gastrointestinal/Abdominal: Positive for: Tenderness (+ epigastric tenderness on palpation). Negative for: Guarding, Rebound Back: Negative for: L CVA Tenderness, R CVA Tenderness Lymphatic: Positive for: Normal Exam Neurologic/Psych: Positive for: Alert, Oriented - Laboratory Results Result Diagrams: 03/03/18 22:55 03/03/18 22:55 - ECG O2 Sat by Pulse Oximetry: 100 Medical Decision Making Medical Decision Making: EKG Urine preg Zofran 4mg IV NS 500cc fluid bolus CBC, CMP EKG: sinus rhythm, HR 80s, no ischemic change. 23:35: Re-evaluated: Abdominal pain and nausea improved but still present. Pepcid 20mg IV ordered. labs unremarkable. 00:15: re-evaluated; abdominal pain improving, pt stable for d/c home w/ return instructions given. Disposition - Clinical Impression Clinical Impression: Food poisoning - Patient ED Disposition Is Patient to be Admitted: No Counseled Patient/Family Regarding: Studies Performed, Diagnosis, Need For Followup - Disposition Referrals: Gina Zimmerman MD [Family Provider] - Disposition: Routine/Home Disposition Time: 00:35 Condition: STABLE Additional Instructions: Stay hydrated. Take Zofran pills as needed for nausea. Return to ER if you are unable to tolerate any water/fluids. F/u with your primary care doctor as needed. Prescriptions: Ondansetron ODT [Zofran ODT] 4 mg PO Q8 PRN #6 odt PRN Reason: Pain, Moderate (4-7) Instructions: Food Poisoning (DC) Forms: [employer] (Iraqi) Print Language: MOLDOVAN
[2018-03-03 22:59] LABS: BASO % 0.1 % (0.0-2.0); EOS % 0.1 % (0.0-4.0); LYMPH # 0.7 K/uL (1.0-4.3); LYMPH % 10.4 % (20.0-40.0); MEAN CORPUSCULAR HEMOGLOBIN 29.5 pg (27.0-31.0); MEAN CORPUSCULAR HGB CONC 33.5 g/dL (33.0-37.0); MEAN PLATELET VOLUME 7.3 fl (7.2-11.7); MONO # 0.2 K/uL (0.0-0.8); MONO % 3.5 % (0.0-10.0); NEUT # 5.8 K/uL (1.8-7.0); NEUT % 85.9 % (50.0-75.0); NRBC % 0.1 % (0.0-0.0); RBC 4.41 Mil/uL (3.80-5.20); RED CELL DISTRIBUTION WIDTH 13.7 % (11.5-14.5); WHITE BLOOD COUNT 6.8 K/uL (4.8-10.8)
[2018-03-03 23:07] LABS: ALB/GLOB RATIO 1.3 (1.0-2.1); ALBUMIN 4.4 g/dL (3.5-5.0); ALT/SGPT 33 U/L (9-52); AST/SGOT 25 U/L (14-36); BLOOD UREA NITROGEN 11 mg/dl (7-17); CALCIUM 8.5 mg/dL (8.4-10.2); GFR NON-AFRICAN AMERICAN > 60
--- NOTE | 2018-03-04 18:52 | CARD ---
APPROVED REPORT Date of service: 03/03/2018 EKG Measurement Heart [id number] <Conclusion> Normal sinus rhythm Normal ECG
== END 2018-03-04 00:30 | disposition home or self-care (01) ==
LOC: H.ER 20:57
DX: T62.91XA Toxic effect of unspecified noxious substance eaten as food, accidental (unintentional), initial encounter (principal); Z86.59 Personal history of other mental and behavioral disorders; Z79.899 Other long term (current) drug therapy
CPT/HCPCS: 80053; 81025; 85025; 93005; 96374; 99284; J2405; J7030